=== PATIENT | female | born 1945 | race Caucasian/White ===

== ENCOUNTER 2025-08-22 11:54 | Emergency (ER) | payer MEDICARE, BC ==
[~2025-08-22] VITALS: Ht 167.6 cm; Wt 64.0 kg
[2025-08-22] MEDS ORDERED: ACETAMINOPHEN ES 500 MG TABLET ONE (12:22)
[2025-08-22] MEDS: ACETAMINOPHEN ES 500 MG TABLET PO ONE (12:28)
[2025-08-22 15:00] VITALS: BP 128/72; TEMP 98.3; O2SAT 98
== END 2025-08-22 14:20 | disposition home or self-care (01) ==
LOC: ER 11:57
DX: S00.83XA Contusion of other part of head, initial encounter (principal); I51.9 Heart disease, unspecified; E78.5 Hyperlipidemia, unspecified; W01.10XA Fall on same level from slipping, tripping and stumbling with subsequent striking against unspecified object, initial encounter; Y93.89 Activity, other specified; Y92.89 Other specified places as the place of occurrence of the external cause; Y99.9 Unspecified external cause status
CPT/HCPCS: 99284; 70450; 70486; A6403